=== PATIENT | male | born 1945 | race Caucasian/White ===

== ENCOUNTER 2017-03-17 07:06 | Day surgery (SDC) | payer MEDICARE, OTHER ==
[~2017-03-17] VITALS: Ht 188 cm; Wt 101.6 kg
[~2017-03-17 07:06] MED LIST: CRESTOR10 MG PO; FLOMAX0.4 MG PO; LOW DOSE ASPIRI81 MG PO
--- NOTE | 2017-03-17 09:09 | NUR ---
03/17/17 0909 Vanessa Araujo 0809 PATIENT ARRIVES TO PACU AWAKE, BUT DROWSY, ALERT AND ORIENTED X3. ASK QUESTIONS APPROPRIATELY, DENIES PAIN OR NAUSEA, THEN BACK TO SLEEP.
== END 2017-03-17 09:50 | disposition home or self-care (01) ==
LOC: OPS 07:06 → DS 07:06 → OPS 08:15
PROVIDERS: Colon & Rectal Surgery
PROC: 0DJD8ZZ Inspection of Lower Intestinal Tract, Via Natural or Artificial Opening Endoscopic (ICD-10-PCS; principal; 2017-03-17 08:15)
DX: Z12.11 Encounter for screening for malignant neoplasm of colon (principal); K57.30 Diverticulosis of large intestine without perforation or abscess without bleeding; K64.8 Other hemorrhoids; E78.5 Hyperlipidemia, unspecified; N40.0 Benign prostatic hyperplasia without lower urinary tract symptoms; Z85.46 Personal history of malignant neoplasm of prostate; Z98.890 Other specified postprocedural states; Z79.82 Long term (current) use of aspirin
CPT/HCPCS: 99152; 99153; J2250; J3010; J7120